=== PATIENT | female | born 1985 | race Caucasian/White ===

== ENCOUNTER 2023-10-19 11:07 | Outpatient (OUT) | payer OTHER, SELFPAY ==
--- NOTE | 2023-10-19 11:16 | US_ITS ---
[address] [address] Patient Name: STELLA STEVENS MRN: [id number] date: 1985 Sex: F Assigned Patient Location: [facility] Current Patient Location: [facility] Accession/Order Number: [id number] Exam Date: 10/19/2023 11:20 Report Date: 10/19/2023 11:43 At the request of: MANDIE BEYER Procedure: US venous doppler LE RT EXAMINATION: US venous doppler LE RT HISTORY: Calf Pain ; anterior monzon pain and bruising since injury 2 weeks ago COMPARISON: No relevant comparison available. FINDINGS: REGION: Right lower extremity THROMBI: None. COMPRESSIBILITY: Normal compressibility. FLOW: Normal waveform and antegrade flow between 5 and 20 cm/s. OTHER: Thin fluid collection within subcutaneous tissues of the anterior monzon approximately 3.0 x 4.8 cm in diameter by 0.7 cm in thickness. No internal blood flow on color Doppler. US/US venous doppler LE RT IMPRESSION: 1. No deep vein thrombus within the right lower extremity. 2. Small fluid collection, likely old hematoma within subcutaneous tissues of right monzon. Electronically authenticated by: OSIEL MANCINI Date: 10/19/2023 11:43
--- NOTE | 2023-10-19 11:19 | XR_ITS ---
The [address] [address] Patient Name: STELLA STEVENS MRN: [id number] date: 1985 Sex: F Assigned Patient Location: [facility] Current Patient Location: [facility] Accession/Order Number: [id number] Exam Date: 10/19/2023 11:30 Report Date: 10/19/2023 11:58 At the request of: MANDIE BEYER Procedure: XR tibia fibula RT 2V PROCEDURE: XR tibia fibula RT 2V HISTORY: Contusion To Right Tib Fib, Calf Pain COMPARISON: None. FINDINGS: BONES:No fracture, acute abnormality, or significant arthropathy. SOFT TISSUES:No visible soft tissue swelling. EFFUSION:None visible. OTHER: Negative. XR/XR tibia fibula RT 2V IMPRESSION: 1. No acute bone abnormality. 2. No appreciable soft tissue mass or foreign body. Ultrasound evaluation performed today showed what is suspected represent a small hematoma corresponding to patient's area of tenderness and bruising. Electronically authenticated by: OSIEL MANCINI Date: 10/19/2023 11:58
== END 2023-10-19 11:08 | disposition home or self-care (01) ==
LOC: RAD 11:10
PROVIDERS: Visit Provider Nurse Practitioner Family
DX: S80.11XA Contusion of right lower leg, initial encounter (principal); M79.604 Pain in right leg; R60.0 Localized edema
CPT/HCPCS: 73590; 93971